=== PATIENT | male | born 1980 | race Hispanic/Latino ===

== ENCOUNTER 2021-03-17 14:38 | Inpatient (IN) | payer BC ==
[~2021-03-17 14:38] MED LIST: Iopamidol-370 76% 500 ML 1 ML ONE
[2021-03-17] MEDS ORDERED: Acetaminophen/Codeine 30-300mg Tablet ONE (16:11)
[2021-03-17] MEDS ORDERED: Ketorolac Tromethamine 30 MG/ML VIAL ONE ×2 (16:11→19:05)
[2021-03-17 16:41] LABS: #Lymphocytes 0.3 thou/uL (1.20-3.40); #Monocytes 0.4 thou/uL (0.11-0.59); #Neutrophils 6.4 thou/uL (1.40-6.50); %Basophils 0.7 % (0.0-1.0); %Eosinophils 0.1 % (0.0-10.0); %Lymphocytes 4.6 % (21.0-51.0); %Neutrophils 88.7 % (42.0-75.0); Hemoglobin 15.1 g/dL (14.0-18.0); Mean Corpuscular HGB CONC 34.8 g/dL (32.0-36.0); Mean Corpuscular Volume 92.1 fL (78.0-98.0); Platelet Count 189 thou/uL (130-400); RBC Distribution Width 11.4 % (11.5-14.5); Red Blood Cell (RBC) Count 4.73 mill/uL (4.70-6.10); White Blood Cell (WBC) Count 7.3 thou/uL (4.8-10.8)
[2021-03-17 17:09] LABS: ALT (SGPT) 33 U/L (8-55); AST (SGOT) 32 U/L (5-34); Albumin 3.4 g/dL (3.5-5.0); Alkaline Phosphatase 51 U/L (40-110); Anion Gap 13 mmol/L (10-20); BUN (Urea Nitrogen) 16 mg/dL (8.9-20.6); Bilirubin, Total 0.8 mg/dL (0.2-1.2); Calc. Creatinine Clearance 0 mL/min (70-130); Calcium 8.7 mg/dL (7.8-10.44); Carbon Dioxide 23 mmol/L (22-29); Chloride 103 mmol/L (98-107); Glucose 122 mg/dL (70-105); Potassium 4.5 mmol/L (3.5-5.1); Protein, Total 7.4 g/dL (6.0-8.3); Sodium 134 mmol/L (136-145)
[2021-03-17] MEDS ORDERED: Dexamethasone 10 MG/ML VIAL ONE (19:05)
[2021-03-17] MEDS ORDERED: Ondansetron PF 4 MG/2 ML Vial IVP PRN (21:45)
[2021-03-17] MEDS ORDERED: Acetaminophen 325 MG TAB PO PRN (21:45)
[2021-03-17] MEDS ORDERED: Ondansetron ODT 4 MG TAB SL PRN (21:45)
[2021-03-17] MEDS ORDERED: Enoxaparin Sodium 40 MG/0.4 ML SYRINGE SC SCH (23:30)
[2021-03-17] MEDS ORDERED: guaiFENesin ER 600 MG TAB PO SCH (23:45)
[2021-03-17] MEDS: Benzonatate 100 MG CAP PO PRN (23:59)
[2021-03-18 06:19] LABS: #Lymphocytes 0.7 thou/uL (1.20-3.40); #Monocytes 0.8 thou/uL (0.11-0.59); %Basophils 0.2 % (0.0-1.0); %Eosinophils 0.1 % (0.0-10.0); %Lymphocytes 6.6 % (21.0-51.0); %Monocytes 7.6 % (0.0-10.0); %Neutrophils 85.5 % (42.0-75.0); Hemoglobin 14.6 g/dL (14.0-18.0); Mean Corpuscular Hemoglobin 31.7 pg (27.0-31.0); Mean Corpuscular Volume 93.2 fL (78.0-98.0); Platelet Count 216 thou/uL (130-400); RBC Distribution Width 11.5 % (11.5-14.5); White Blood Cell (WBC) Count 10.5 thou/uL (4.8-10.8)
[2021-03-18 06:50] LABS: Anion Gap 14 mmol/L (10-20); BUN (Urea Nitrogen) 17 mg/dL (8.9-20.6); Calc. Creatinine Clearance 117 mL/min (70-130); Calcium 8.9 mg/dL (7.8-10.44); Carbon Dioxide 23 mmol/L (22-29); Chloride 103 mmol/L (98-107); Glucose 128 mg/dL (70-105); Potassium 4.5 mmol/L (3.5-5.1); Sodium 135 mmol/L (136-145)
[2021-03-18] MEDS: Cholecalciferol (Vitamin D3) 400 UNITS TAB PO SCH (08:49)
[2021-03-18] MEDS: Enoxaparin Sodium 40 MG/0.4 ML SYRINGE SC SCH ×2 (08:49→20:22)
[2021-03-18] MEDS: Ascorbic Acid 500 mg Chewable Tablet PO SCH (08:50)
[2021-03-18] MEDS: guaiFENesin ER 600 MG TAB PO SCH ×2 (08:50→20:23)
[2021-03-18] MEDS: Zinc Sulfate 220 MG CAP PO SCH (08:50)
[2021-03-18] MEDS: Benzonatate 100 MG CAP PO PRN ×4 (08:50→23:36)
[2021-03-18] MEDS ORDERED: Dexamethasone 4 mg/ml Vial SLOW IVP SCH (09:00)
[2021-03-18] MEDS ORDERED: REMDESIVIR 200 MG in Sodium Chloride 0.9% 250 ML 210 ML IV SCH (09:00)
[2021-03-18] MEDS: guaiFENesin/Codeine 200 mg/20 mg 10 ml Cup PO PRN ×2 (11:24→20:24)
[2021-03-18] MEDS: Acetaminophen 325 MG TAB PO PRN ×2 (17:35→23:36)
[2021-03-19 05:43] LABS: #Lymphocytes 1.3 thou/uL (1.20-3.40); #Monocytes 0.6 thou/uL (0.11-0.59); #Neutrophils 8.7 thou/uL (1.40-6.50); %Basophils 0.5 % (0.0-1.0); %Eosinophils 0.3 % (0.0-10.0); %Lymphocytes 11.8 % (21.0-51.0); %Neutrophils 81.5 % (42.0-75.0); Hemoglobin 14.9 g/dL (14.0-18.0); Mean Corpuscular HGB CONC 34.1 g/dL (32.0-36.0); Mean Corpuscular Hemoglobin 31.6 pg (27.0-31.0); Mean Corpuscular Volume 92.8 fL (78.0-98.0); Mean Platelet Volume 7.6 fL (7.4-10.4); Platelet Count 249 thou/uL (130-400); RBC Distribution Width 11.5 % (11.5-14.5); Red Blood Cell (RBC) Count 4.71 mill/uL (4.70-6.10); White Blood Cell (WBC) Count 10.7 thou/uL (4.8-10.8)
[2021-03-19 06:09] LABS: ALT (SGPT) 28 U/L (8-55); AST (SGOT) 33 U/L (5-34); Albumin 3.2 g/dL (3.5-5.0); Alkaline Phosphatase 51 U/L (40-110); Anion Gap 11 mmol/L (10-20); BUN (Urea Nitrogen) 18 mg/dL (8.9-20.6); Bilirubin, Total 0.8 mg/dL (0.2-1.2); Calc. Creatinine Clearance 123 mL/min (70-130); Calcium 8.9 mg/dL (7.8-10.44); Carbon Dioxide 27 mmol/L (22-29); Chloride 103 mmol/L (98-107); Globulin 3.8 g/dL (2.4-3.5); Glucose 103 mg/dL (70-105); Potassium 4.3 mmol/L (3.5-5.1); Sodium 137 mmol/L (136-145)
[2021-03-19] MEDS: Acetaminophen 325 MG TAB PO PRN ×3 (07:06→20:42)
[2021-03-19] MEDS: guaiFENesin/Codeine 200 mg/20 mg 10 ml Cup PO PRN ×3 (07:06→20:34)
[2021-03-19] MEDS: Enoxaparin Sodium 40 MG/0.4 ML SYRINGE SC SCH ×2 (08:41→20:30)
[2021-03-19] MEDS: Colchicine 0.6 MG TAB PO SCH ×2 (08:42→20:29)
[2021-03-19] MEDS: Cholecalciferol (Vitamin D3) 400 UNITS TAB PO SCH (08:42)
[2021-03-19] MEDS: Zinc Sulfate 220 MG CAP PO SCH (08:42)
[2021-03-19] MEDS: ALPRAZolam 0.5 MG TAB PO PRN ×2 (08:42→20:38)
[2021-03-19] MEDS: Dexamethasone 4 mg/ml Vial SLOW IVP SCH ×2 (08:42→20:29)
[2021-03-19] MEDS: Ascorbic Acid 500 mg Chewable Tablet PO SCH (08:42)
[2021-03-19] MEDS: Benzonatate 100 MG CAP PO PRN (08:43)
[2021-03-19] MEDS: guaiFENesin ER 600 MG TAB PO SCH ×2 (08:43→20:30)
[2021-03-19] MEDS: REMDESIVIR 100 MG in Sodium Chloride 0.9% 250 ML 230 ML IV SCH (10:23)
[2021-03-20] MEDS: Benzonatate 100 MG CAP PO PRN ×4 (04:38→20:22)
[2021-03-20] MEDS: ALPRAZolam 0.5 MG TAB PO PRN ×2 (04:38→16:28)
[2021-03-20 06:31] LABS: ALT (SGPT) 25 U/L (8-55); AST (SGOT) 24 U/L (5-34); Albumin 3.1 g/dL (3.5-5.0); Alkaline Phosphatase 53 U/L (40-110); Anion Gap 12 mmol/L (10-20); BUN (Urea Nitrogen) 17 mg/dL (8.9-20.6); Bilirubin, Total 0.8 mg/dL (0.2-1.2); CRP (Inflammatory) 9.69 mg/dL (= or < 0.5); Calc. Creatinine Clearance 152 mL/min (70-130); Calcium 8.8 mg/dL (7.8-10.44); Carbon Dioxide 23 mmol/L (22-29); Chloride 104 mmol/L (98-107); Globulin 3.7 g/dL (2.4-3.5); Glucose 127 mg/dL (70-105); Potassium 4.4 mmol/L (3.5-5.1); Protein, Total 6.8 g/dL (6.0-8.3); Sodium 135 mmol/L (136-145)
[2021-03-20 06:47] LABS: Band 5 % (5-11); Hemoglobin 15.1 g/dL (14.0-18.0); Lymphocytes 8 % (21-51); MDiff Complete? YES; Mean Corpuscular HGB CONC 32.9 g/dL (32.0-36.0); Mean Corpuscular Hemoglobin 30.7 pg (27.0-31.0); Mean Corpuscular Volume 93.4 fL (78.0-98.0); Mean Platelet Volume 7.4 fL (7.4-10.4); Metamyelocyte 2 % (0-0); Monocytes 4 % (0-10); Myelocyte 3 % (0-0); Neutrophil 76 % (42-75); Platelet Count 297 thou/uL (130-400); Platelet Morphology Comment Appears Adequate; RBC Distribution Width 11.6 % (11.5-14.5); RBC Morphology Normal; Reactive Lymphocytes 2 % (0-10); Red Blood Cell (RBC) Count 4.93 mill/uL (4.70-6.10); White Blood Cell (WBC) Count 8.4 thou/uL (4.8-10.8)
[2021-03-20] MEDS: guaiFENesin ER 600 MG TAB PO SCH ×2 (08:31→20:15)
[2021-03-20] MEDS: Ascorbic Acid 500 mg Chewable Tablet PO SCH (08:31)
[2021-03-20] MEDS: Acetaminophen 325 MG TAB PO PRN (08:31)
[2021-03-20] MEDS: guaiFENesin/Codeine 200 mg/20 mg 10 ml Cup PO PRN ×2 (08:31→16:28)
[2021-03-20] MEDS: Dexamethasone 4 mg/ml Vial SLOW IVP SCH ×2 (08:31→20:08)
[2021-03-20] MEDS: Enoxaparin Sodium 40 MG/0.4 ML SYRINGE SC SCH ×2 (08:31→20:13)
[2021-03-20] MEDS: Zinc Sulfate 220 MG CAP PO SCH (08:32)
[2021-03-20] MEDS: Colchicine 0.6 MG TAB PO SCH ×2 (08:32→20:13)
[2021-03-20] MEDS: Cholecalciferol (Vitamin D3) 400 UNITS TAB PO SCH (08:32)
[2021-03-20] MEDS: REMDESIVIR 100 MG in Sodium Chloride 0.9% 250 ML 230 ML IV SCH (09:22)
[2021-03-20] MEDS ORDERED: Morphine 2 MG/ML VIAL SLOW IVP SCH (19:49)
[2021-03-21] MEDS: guaiFENesin/Codeine 200 mg/20 mg 10 ml Cup PO PRN ×3 (00:43→20:14)
[2021-03-21] MEDS: ALPRAZolam 0.5 MG TAB PO PRN ×2 (00:49→20:39)
[2021-03-21 04:28] LABS: ALT (SGPT) 31 U/L (8-55); AST (SGOT) 23 U/L (5-34); Alkaline Phosphatase 54 U/L (40-110); Anion Gap 11 mmol/L (10-20); BUN (Urea Nitrogen) 16 mg/dL (8.9-20.6); Bilirubin, Total 0.9 mg/dL (0.2-1.2); CRP (Inflammatory) 4.32 mg/dL (= or < 0.5); Calc. Creatinine Clearance 125 mL/min (70-130); Calcium 8.9 mg/dL (7.8-10.44); Carbon Dioxide 27 mmol/L (22-29); Chloride 102 mmol/L (98-107); Globulin 3.9 g/dL (2.4-3.5); Glucose 122 mg/dL (70-105); Potassium 4.6 mmol/L (3.5-5.1); Protein, Total 6.9 g/dL (6.0-8.3); Sodium 135 mmol/L (136-145)
[2021-03-21 04:34] LABS: Band 8 % (5-11); Hemoglobin 15.3 g/dL (14.0-18.0); Lymphocytes 7 % (21-51); MDiff Complete? YES; Mean Corpuscular HGB CONC 34.4 g/dL (32.0-36.0); Mean Corpuscular Hemoglobin 32.1 pg (27.0-31.0); Mean Corpuscular Volume 93.3 fL (78.0-98.0); Mean Platelet Volume 7.5 fL (7.4-10.4); Monocytes 5 % (0-10); Neutrophil 80 % (42-75); Platelet Count 341 thou/uL (130-400); Platelet Morphology Comment Appears Adequate; RBC Distribution Width 11.5 % (11.5-14.5); RBC Morphology Normal; Red Blood Cell (RBC) Count 4.77 mill/uL (4.70-6.10); White Blood Cell (WBC) Count 16.2 thou/uL (4.8-10.8)
[2021-03-21] MEDS: REMDESIVIR 100 MG in Sodium Chloride 0.9% 250 ML 230 ML IV SCH (08:06)
[2021-03-21] MEDS: Dexamethasone 4 mg/ml Vial SLOW IVP SCH ×2 (08:06→20:13)
[2021-03-21] MEDS: guaiFENesin ER 600 MG TAB PO SCH ×2 (08:07→20:14)
[2021-03-21] MEDS: Cholecalciferol (Vitamin D3) 400 UNITS TAB PO SCH (08:07)
[2021-03-21] MEDS: Colchicine 0.6 MG TAB PO SCH (08:07)
[2021-03-21] MEDS: Zinc Sulfate 220 MG CAP PO SCH (08:07)
[2021-03-21] MEDS: Ascorbic Acid 500 mg Chewable Tablet PO SCH (08:07)
[2021-03-21] MEDS: Enoxaparin Sodium 40 MG/0.4 ML SYRINGE SC SCH ×2 (08:08→20:14)
[2021-03-21] MEDS: Benzonatate 100 MG CAP PO PRN (12:39)
[2021-03-21] MEDS ORDERED: BARICITINIB 2 MG TAB PO SCH (16:30)
[2021-03-21] MEDS: Ipratropium Bromide 0.06% Nasal Inhaler 15ml EA NARE SCH (20:15)
[2021-03-22 04:10] LABS: ALT (SGPT) 49 U/L (8-55); AST (SGOT) 28 U/L (5-34); Albumin 3.3 g/dL (3.5-5.0); Alkaline Phosphatase 66 U/L (40-110); Anion Gap 11 mmol/L (10-20); BUN (Urea Nitrogen) 19 mg/dL (8.9-20.6); Bilirubin, Total 0.9 mg/dL (0.2-1.2); Calc. Creatinine Clearance 120 mL/min (70-130); Calcium 9.2 mg/dL (7.8-10.44); Carbon Dioxide 28 mmol/L (22-29); Chloride 103 mmol/L (98-107); Globulin 4.2 g/dL (2.4-3.5); Glucose 119 mg/dL (70-105); Potassium 4.6 mmol/L (3.5-5.1); Protein, Total 7.5 g/dL (6.0-8.3); Sodium 137 mmol/L (136-145)
[2021-03-22 04:53] LABS: Band 14 % (5-11); Hemoglobin 16.2 g/dL (14.0-18.0); Lymphocytes 7 % (21-51); MDiff Complete? YES; Mean Corpuscular HGB CONC 34.2 g/dL (32.0-36.0); Mean Corpuscular Hemoglobin 31.8 pg (27.0-31.0); Mean Corpuscular Volume 92.9 fL (78.0-98.0); Mean Platelet Volume 7.4 fL (7.4-10.4); Metamyelocyte 1 % (0-0); Monocytes 8 % (0-10); Myelocyte 3 % (0-0); Neutrophil 64 % (42-75); Platelet Count 417 thou/uL (130-400); Platelet Morphology Comment Appears Increased; RBC Distribution Width 11.4 % (11.5-14.5); RBC Morphology Normal; Reactive Lymphocytes 3 % (0-10); White Blood Cell (WBC) Count 14.2 thou/uL (4.8-10.8)
[2021-03-22] MEDS: guaiFENesin/Codeine 200 mg/20 mg 10 ml Cup PO PRN ×2 (06:06→20:44)
[2021-03-22] MEDS: ALPRAZolam 0.5 MG TAB PO PRN ×2 (06:32→20:28)
[2021-03-22] MEDS ORDERED: Loperamide HCl 2 MG CAP PO PRN (07:47)
[2021-03-22] MEDS ORDERED: Senokot S 8.6-50 MG TAB PO PRN (07:47)
[2021-03-22] MEDS ORDERED: Sodium Chloride 0.65% Nasal 44 ML BOT EA NARE PRN (07:47)
[2021-03-22] MEDS ORDERED: GUAIFENESIN SF SOLN 200 MG/10 ML UDCUP PO PRN (07:47)
[2021-03-22] MEDS ORDERED: HYDROcodone/Acetaminophen 5/325 mg Tablet PO PRN (07:47)
[2021-03-22] MEDS ORDERED: Hydrocerin (Eucerin) Cream 120 gm Jar TOP PRN (07:47)
[2021-03-22] MEDS ORDERED: hydrALAZINE 20 MG/ML VIAL SLOW IVP PRN (07:47)
[2021-03-22] MEDS ORDERED: Bisacodyl 5 MG TAB PO PRN (07:47)
[2021-03-22] MEDS ORDERED: Artificial Tear Sol 15 ML BOT EA EYE PRN (07:47)
[2021-03-22] MEDS ORDERED: Ondansetron PF 4 MG/2 ML Vial IVP PRN (07:47)
[2021-03-22] MEDS ORDERED: Ondansetron ODT 4 MG TAB PO PRN (07:47)
[2021-03-22] MEDS ORDERED: Melatonin 3 MG TAB PO PRN (07:48)
[2021-03-22] MEDS: Zinc Sulfate 220 MG CAP PO SCH (08:44)
[2021-03-22] MEDS: BARICITINIB 2 MG TAB PO SCH (08:44)
[2021-03-22] MEDS: Cholecalciferol (Vitamin D3) 400 UNITS TAB PO SCH (08:44)
[2021-03-22] MEDS: Ascorbic Acid 500 mg Chewable Tablet PO SCH (08:44)
[2021-03-22] MEDS: Dexamethasone 4 mg/ml Vial SLOW IVP SCH ×2 (08:44→19:56)
[2021-03-22] MEDS: Loratadine 10 MG TAB PO SCH (08:44)
[2021-03-22] MEDS: Enoxaparin Sodium 40 MG/0.4 ML SYRINGE SC SCH ×2 (08:45→19:56)
[2021-03-22] MEDS: REMDESIVIR 100 MG in Sodium Chloride 0.9% 250 ML 230 ML IV SCH (08:45)
[2021-03-22] MEDS: Fluticasone Propionate Nasal Spray 16 gm Bottle NASAL SCH (10:38)
[2021-03-22] MEDS: Ipratropium Bromide 0.06% Nasal Inhaler 15ml EA NARE SCH ×2 (10:38→19:57)
[2021-03-22] MEDS: guaiFENesin ER 600 MG TAB PO SCH ×2 (13:05→19:55)
[2021-03-22] MEDS: Benzonatate 100 MG CAP PO PRN (20:28)
[2021-03-23 04:28] LABS: ALT (SGPT) 55 U/L (8-55); AST (SGOT) 27 U/L (5-34); Albumin 3.2 g/dL (3.5-5.0); Alkaline Phosphatase 66 U/L (40-110); Anion Gap 11 mmol/L (10-20); BUN (Urea Nitrogen) 20 mg/dL (8.9-20.6); Calc. Creatinine Clearance 122 mL/min (70-130); Calcium 8.8 mg/dL (7.8-10.44); Carbon Dioxide 26 mmol/L (22-29); Chloride 102 mmol/L (98-107); Globulin 3.8 g/dL (2.4-3.5); Glucose 110 mg/dL (70-105); Potassium 4.9 mmol/L (3.5-5.1); Sodium 134 mmol/L (136-145)
[2021-03-23 04:35] LABS: Band 2 % (5-11); Hemoglobin 15.3 g/dL (14.0-18.0); Lymphocytes 7 % (21-51); MDiff Complete? YES; Mean Corpuscular Hemoglobin 31.5 pg (27.0-31.0); Mean Corpuscular Volume 92.7 fL (78.0-98.0); Mean Platelet Volume 7.1 fL (7.4-10.4); Monocytes 5 % (0-10); Neutrophil 86 % (42-75); Platelet Count 411 thou/uL (130-400); Platelet Morphology Comment Appears Increased; RBC Distribution Width 11.5 % (11.5-14.5); RBC Morphology Normal; Red Blood Cell (RBC) Count 4.85 mill/uL (4.70-6.10); White Blood Cell (WBC) Count 19.3 thou/uL (4.8-10.8)
[2021-03-23] MEDS: guaiFENesin/Codeine 200 mg/20 mg 10 ml Cup PO PRN ×2 (06:52→20:55)
[2021-03-23] MEDS: guaiFENesin ER 600 MG TAB PO SCH ×2 (09:09→20:34)
[2021-03-23] MEDS: Dexamethasone 4 mg/ml Vial SLOW IVP SCH ×2 (09:09→20:34)
[2021-03-23] MEDS: Cholecalciferol (Vitamin D3) 400 UNITS TAB PO SCH (09:09)
[2021-03-23] MEDS: Loratadine 10 MG TAB PO SCH (09:09)
[2021-03-23] MEDS: Zinc Sulfate 220 MG CAP PO SCH (09:09)
[2021-03-23] MEDS: BARICITINIB 2 MG TAB PO SCH (09:11)
[2021-03-23] MEDS: Ipratropium Bromide 0.06% Nasal Inhaler 15ml EA NARE SCH ×2 (09:12→20:36)
[2021-03-23] MEDS: Enoxaparin Sodium 40 MG/0.4 ML SYRINGE SC SCH ×2 (09:12→20:33)
[2021-03-23] MEDS: Fluticasone Propionate Nasal Spray 16 gm Bottle NASAL SCH (09:12)
[2021-03-23] MEDS: Ascorbic Acid 500 mg Chewable Tablet PO SCH (10:53)
[2021-03-23] MEDS: Acetaminophen 325 MG TAB PO PRN (17:10)
[2021-03-23] MEDS: Calcium Carbonate 500 MG ChewTAB PO PRN ×2 (19:06→22:45)
[2021-03-23] MEDS: Benzonatate 100 MG CAP PO PRN (20:34)
[2021-03-23] MEDS: ALPRAZolam 0.5 MG TAB PO PRN (20:34)
[2021-03-24] MEDS: guaiFENesin/Codeine 200 mg/20 mg 10 ml Cup PO PRN ×2 (03:57→20:44)
[2021-03-24] MEDS: Calcium Carbonate 500 MG ChewTAB PO PRN ×2 (05:17→10:22)
[2021-03-24] MEDS: Enoxaparin Sodium 40 MG/0.4 ML SYRINGE SC SCH ×2 (09:16→20:44)
[2021-03-24] MEDS: Dexamethasone 4 mg/ml Vial SLOW IVP SCH ×2 (09:16→20:44)
[2021-03-24] MEDS: Fluticasone Propionate Nasal Spray 16 gm Bottle NASAL SCH (09:17)
[2021-03-24] MEDS: Ascorbic Acid 500 mg Chewable Tablet PO SCH (09:17)
[2021-03-24] MEDS: Zinc Sulfate 220 MG CAP PO SCH (09:17)
[2021-03-24] MEDS: BARICITINIB 2 MG TAB PO SCH (09:17)
[2021-03-24] MEDS: Cholecalciferol (Vitamin D3) 400 UNITS TAB PO SCH (09:17)
[2021-03-24] MEDS: guaiFENesin ER 600 MG TAB PO SCH ×2 (09:17→20:44)
[2021-03-24] MEDS: Loratadine 10 MG TAB PO SCH (09:17)
[2021-03-24] MEDS: Ipratropium Bromide 0.06% Nasal Inhaler 15ml EA NARE SCH ×2 (09:18→20:46)
[2021-03-24] MEDS: Benzonatate 100 MG CAP PO PRN ×2 (10:22→20:44)
[2021-03-24] MEDS ORDERED: Famotidine 20 MG TAB PO SCH (11:45)
[2021-03-24] MEDS: ALPRAZolam 0.5 MG TAB PO PRN (20:44)
[2021-03-24] MEDS: Cepastat Lozenges 1 LOZ PO PRN (21:40)
[2021-03-25] MEDS: Famotidine 20 MG TAB PO SCH (06:58)
[2021-03-25] MEDS: Calcium Carbonate 500 MG ChewTAB PO PRN (06:58)
[2021-03-25] MEDS: Zinc Sulfate 220 MG CAP PO SCH (10:00)
[2021-03-25] MEDS: Ascorbic Acid 500 mg Chewable Tablet PO SCH (10:00)
[2021-03-25] MEDS: Dexamethasone 4 mg/ml Vial SLOW IVP SCH ×2 (10:00→20:38)
[2021-03-25] MEDS: Enoxaparin Sodium 40 MG/0.4 ML SYRINGE SC SCH ×2 (10:00→20:38)
[2021-03-25] MEDS: Loratadine 10 MG TAB PO SCH (10:00)
[2021-03-25] MEDS: BARICITINIB 2 MG TAB PO SCH (10:00)
[2021-03-25] MEDS: Cholecalciferol (Vitamin D3) 400 UNITS TAB PO SCH (10:00)
[2021-03-25] MEDS: guaiFENesin ER 600 MG TAB PO SCH ×2 (10:00→20:36)
[2021-03-25] MEDS: Ipratropium Bromide 0.06% Nasal Inhaler 15ml EA NARE SCH ×2 (10:01→20:39)
[2021-03-25] MEDS: Fluticasone Propionate Nasal Spray 16 gm Bottle NASAL SCH (10:01)
[2021-03-25] MEDS: Benzonatate 100 MG CAP PO PRN ×2 (10:04→18:02)
[2021-03-25] MEDS: guaiFENesin/Codeine 200 mg/20 mg 10 ml Cup PO PRN (12:34)
[2021-03-25] MEDS: guaiFENesin/Codeine 200 mg/20 mg 10 ml Cup PO SCH (18:02)
[2021-03-25] MEDS: ALPRAZolam 0.5 MG TAB PO PRN (20:36)
[2021-03-25] MEDS: Cepastat Lozenges 1 LOZ PO PRN (20:37)
[2021-03-26] MEDS: Benzonatate 100 MG CAP PO PRN ×5 (00:37→20:48)
[2021-03-26] MEDS: Cepastat Lozenges 1 LOZ PO PRN ×3 (00:37→16:03)
[2021-03-26] MEDS: guaiFENesin/Codeine 200 mg/20 mg 10 ml Cup PO SCH ×4 (00:37→23:11)
[2021-03-26 04:41] LABS: ALT (SGPT) 42 U/L (8-55); AST (SGOT) 13 U/L (5-34); Albumin 3.1 g/dL (3.5-5.0); Alkaline Phosphatase 66 U/L (40-110); Bilirubin, Direct 0.3 mg/dL (0.1-0.3); Bilirubin, Total 0.7 mg/dL (0.2-1.2); Protein, Total 6.9 g/dL (6.0-8.3)
[2021-03-26] MEDS: Famotidine 20 MG TAB PO SCH (06:20)
[2021-03-26] MEDS: Cholecalciferol (Vitamin D3) 400 UNITS TAB PO SCH (08:50)
[2021-03-26] MEDS: Loratadine 10 MG TAB PO SCH (08:50)
[2021-03-26] MEDS: Zinc Sulfate 220 MG CAP PO SCH (08:50)
[2021-03-26] MEDS: Dexamethasone 4 mg/ml Vial SLOW IVP SCH ×2 (08:50→20:47)
[2021-03-26] MEDS: guaiFENesin ER 600 MG TAB PO SCH ×2 (08:50→20:49)
[2021-03-26] MEDS: Enoxaparin Sodium 40 MG/0.4 ML SYRINGE SC SCH ×2 (08:50→20:49)
[2021-03-26] MEDS: Fluticasone Propionate Nasal Spray 16 gm Bottle NASAL SCH (08:51)
[2021-03-26] MEDS: Ascorbic Acid 500 mg Chewable Tablet PO SCH (08:55)
[2021-03-26] MEDS: Ipratropium Bromide 0.06% Nasal Inhaler 15ml EA NARE SCH ×2 (09:24→20:50)
[2021-03-26] MEDS: BARICITINIB 2 MG TAB PO SCH (09:24)
[2021-03-26] MEDS: ALPRAZolam 0.5 MG TAB PO PRN (20:49)
[2021-03-27 04:32] LABS: Anion Gap 11 mmol/L (10-20); BUN (Urea Nitrogen) 14 mg/dL (8.9-20.6); Calc. Creatinine Clearance 136 mL/min (70-130); Calcium 8.8 mg/dL (7.8-10.44); Carbon Dioxide 26 mmol/L (22-29); Chloride 99 mmol/L (98-107); Glucose 114 mg/dL (70-105); Potassium 4.2 mmol/L (3.5-5.1); Sodium 132 mmol/L (136-145)
[2021-03-27 04:42] LABS: Mean Corpuscular HGB CONC 33.3 g/dL (32.0-36.0); Mean Corpuscular Hemoglobin 30.9 pg (27.0-31.0); Mean Platelet Volume 7.7 fL (7.4-10.4); Platelet Count 489 thou/uL (130-400); RBC Distribution Width 11.8 % (11.5-14.5); Red Blood Cell (RBC) Count 4.86 mill/uL (4.70-6.10); White Blood Cell (WBC) Count 24.1 thou/uL (4.8-10.8)
[2021-03-27] MEDS: Cepastat Lozenges 1 LOZ PO PRN ×4 (05:00→20:45)
[2021-03-27 05:40] LABS: Band 23 % (5-11); Eosinophils 1 % (0-10); Lymphocytes 8 % (21-51); MDiff Complete? YES; Monocytes 2 % (0-10); Neutrophil 66 % (42-75)
[2021-03-27] MEDS: Benzonatate 100 MG CAP PO PRN ×4 (06:12→20:39)
[2021-03-27] MEDS: Cholecalciferol (Vitamin D3) 400 UNITS TAB PO SCH (08:50)
[2021-03-27] MEDS: BARICITINIB 2 MG TAB PO SCH (08:50)
[2021-03-27] MEDS: Enoxaparin Sodium 40 MG/0.4 ML SYRINGE SC SCH ×2 (08:50→20:39)
[2021-03-27] MEDS: guaiFENesin/Codeine 200 mg/20 mg 10 ml Cup PO SCH ×2 (08:50→16:29)
[2021-03-27] MEDS: guaiFENesin ER 600 MG TAB PO SCH ×2 (08:51→20:39)
[2021-03-27] MEDS: Dexamethasone 4 mg/ml Vial SLOW IVP SCH ×2 (08:51→20:39)
[2021-03-27] MEDS: ALPRAZolam 0.5 MG TAB PO PRN ×2 (08:51→20:39)
[2021-03-27] MEDS: Ascorbic Acid 500 mg Chewable Tablet PO SCH (08:51)
[2021-03-27] MEDS: Loratadine 10 MG TAB PO SCH (08:51)
[2021-03-27] MEDS: Zinc Sulfate 220 MG CAP PO SCH (08:51)
[2021-03-27] MEDS: Famotidine 20 MG TAB PO SCH (08:51)
[2021-03-27] MEDS: Fluticasone Propionate Nasal Spray 16 gm Bottle NASAL SCH (08:52)
[2021-03-27] MEDS: Ipratropium Bromide 0.06% Nasal Inhaler 15ml EA NARE SCH ×2 (09:30→20:43)
[2021-03-27] MEDS: Melatonin 3 MG TAB PO SCH (20:39)
[2021-03-28] MEDS: guaiFENesin/Codeine 200 mg/20 mg 10 ml Cup PO SCH ×3 (00:17→15:59)
[2021-03-28] MEDS: Cepastat Lozenges 1 LOZ PO PRN ×2 (05:54→09:42)
[2021-03-28] MEDS: Benzonatate 100 MG CAP PO PRN ×3 (06:34→15:59)
[2021-03-28] MEDS: ALPRAZolam 0.5 MG TAB PO PRN ×2 (06:38→20:47)
[2021-03-28 08:26] VITALS: BMI 26.9
[2021-03-28] MEDS: Loratadine 10 MG TAB PO SCH (09:08)
[2021-03-28] MEDS: BARICITINIB 2 MG TAB PO SCH (09:08)
[2021-03-28] MEDS: Cholecalciferol (Vitamin D3) 400 UNITS TAB PO SCH (09:08)
[2021-03-28] MEDS: guaiFENesin ER 600 MG TAB PO SCH ×2 (09:08→20:47)
[2021-03-28] MEDS: Famotidine 20 MG TAB PO SCH (09:08)
[2021-03-28] MEDS: Zinc Sulfate 220 MG CAP PO SCH (09:09)
[2021-03-28] MEDS: Ascorbic Acid 500 mg Chewable Tablet PO SCH (09:09)
[2021-03-28] MEDS: Dexamethasone 4 mg/ml Vial SLOW IVP SCH ×2 (09:09→20:47)
[2021-03-28] MEDS: Enoxaparin Sodium 40 MG/0.4 ML SYRINGE SC SCH ×2 (09:09→20:46)
[2021-03-28] MEDS: Ipratropium Bromide 0.06% Nasal Inhaler 15ml EA NARE SCH ×2 (09:11→20:47)
[2021-03-28] MEDS: Fluticasone Propionate Nasal Spray 16 gm Bottle NASAL SCH (09:11)
[2021-03-28] MEDS: Melatonin 3 MG TAB PO SCH (20:47)
[2021-03-29] MEDS: guaiFENesin/Codeine 200 mg/20 mg 10 ml Cup PO SCH ×3 (00:05→16:48)
[2021-03-29] MEDS: ALPRAZolam 0.5 MG TAB PO PRN ×2 (05:12→21:08)
[2021-03-29] MEDS: Benzonatate 100 MG CAP PO PRN ×2 (05:12→21:08)
[2021-03-29 07:43] LABS: ALT (SGPT) 45 U/L (8-55); AST (SGOT) 15 U/L (5-34); Albumin 3.1 g/dL (3.5-5.0); Alkaline Phosphatase 72 U/L (40-110); Bilirubin, Direct 0.3 mg/dL (0.1-0.3); Bilirubin, Total 0.8 mg/dL (0.2-1.2); Protein, Total 6.5 g/dL (6.0-8.3)
[2021-03-29] MEDS: Dexamethasone 4 mg/ml Vial SLOW IVP SCH ×2 (09:13→19:38)
[2021-03-29] MEDS: Cholecalciferol (Vitamin D3) 400 UNITS TAB PO SCH (09:13)
[2021-03-29] MEDS: Ascorbic Acid 500 mg Chewable Tablet PO SCH (09:13)
[2021-03-29] MEDS: Famotidine 20 MG TAB PO SCH (09:13)
[2021-03-29] MEDS: Zinc Sulfate 220 MG CAP PO SCH (09:13)
[2021-03-29] MEDS: Enoxaparin Sodium 40 MG/0.4 ML SYRINGE SC SCH ×2 (09:13→19:36)
[2021-03-29] MEDS: Loratadine 10 MG TAB PO SCH (09:13)
[2021-03-29] MEDS: guaiFENesin ER 600 MG TAB PO SCH ×2 (09:13→19:37)
[2021-03-29] MEDS: BARICITINIB 2 MG TAB PO SCH (09:18)
[2021-03-29] MEDS: Fluticasone Propionate Nasal Spray 16 gm Bottle NASAL SCH (09:33)
[2021-03-29] MEDS: Ipratropium Bromide 0.06% Nasal Inhaler 15ml EA NARE SCH ×2 (09:33→21:00)
[2021-03-29] MEDS: Melatonin 3 MG TAB PO SCH (19:38)
[2021-03-30] MEDS: guaiFENesin/Codeine 200 mg/20 mg 10 ml Cup PO SCH ×3 (00:32→16:52)
[2021-03-30 07:05] LABS: #Eosinphils 0.1 thou/uL (0.0-0.7); #Lymphocytes 0.9 thou/uL (1.20-3.40); #Monocytes 0.9 thou/uL (0.11-0.59); #Neutrophils 12.1 thou/uL (1.40-6.50); %Basophils 0.1 % (0.0-1.0); %Eosinophils 0.4 % (0.0-10.0); %Lymphocytes 6.3 % (21.0-51.0); %Monocytes 6.7 % (0.0-10.0); %Neutrophils 86.6 % (42.0-75.0); Hemoglobin 14.7 g/dL (14.0-18.0); Mean Corpuscular HGB CONC 34.6 g/dL (32.0-36.0); Mean Corpuscular Hemoglobin 32.5 pg (27.0-31.0); Mean Platelet Volume 7.8 fL (7.4-10.4); Platelet Count 440 thou/uL (130-400); RBC Distribution Width 11.9 % (11.5-14.5); Red Blood Cell (RBC) Count 4.51 mill/uL (4.70-6.10); White Blood Cell (WBC) Count 13.9 thou/uL (4.8-10.8)
[2021-03-30 07:15] LABS: Anion Gap 10 mmol/L (10-20); BUN (Urea Nitrogen) 15 mg/dL (8.9-20.6); Calc. Creatinine Clearance 115 mL/min (70-130); Calcium 8.7 mg/dL (7.8-10.44); Carbon Dioxide 30 mmol/L (22-29); Chloride 102 mmol/L (98-107); Glucose 94 mg/dL (70-105); Potassium 4.4 mmol/L (3.5-5.1); Sodium 138 mmol/L (136-145)
[2021-03-30] MEDS: BARICITINIB 2 MG TAB PO SCH (08:22)
[2021-03-30] MEDS: Zinc Sulfate 220 MG CAP PO SCH (08:22)
[2021-03-30] MEDS: Enoxaparin Sodium 40 MG/0.4 ML SYRINGE SC SCH ×2 (08:23→20:11)
[2021-03-30] MEDS: Cholecalciferol (Vitamin D3) 400 UNITS TAB PO SCH (08:23)
[2021-03-30] MEDS: Loratadine 10 MG TAB PO SCH (08:23)
[2021-03-30] MEDS: Ascorbic Acid 500 mg Chewable Tablet PO SCH (08:23)
[2021-03-30] MEDS: guaiFENesin ER 600 MG TAB PO SCH ×2 (08:23→20:11)
[2021-03-30] MEDS: Dexamethasone 4 mg/ml Vial SLOW IVP SCH ×2 (08:23→20:11)
[2021-03-30] MEDS: Famotidine 20 MG TAB PO SCH (08:23)
[2021-03-30] MEDS: Fluticasone Propionate Nasal Spray 16 gm Bottle NASAL SCH (09:34)
[2021-03-30] MEDS: Ipratropium Bromide 0.06% Nasal Inhaler 15ml EA NARE SCH ×2 (09:34→20:12)
[2021-03-30] MEDS: ALPRAZolam 0.5 MG TAB PO PRN ×2 (09:53→20:11)
[2021-03-30] MEDS: Benzonatate 100 MG CAP PO PRN (20:11)
[2021-03-30] MEDS: Melatonin 3 MG TAB PO SCH (20:12)
[2021-03-31] MEDS: guaiFENesin/Codeine 200 mg/20 mg 10 ml Cup PO SCH ×3 (01:19→17:01)
[2021-03-31] MEDS: Benzonatate 100 MG CAP PO PRN ×2 (08:24→20:03)
[2021-03-31] MEDS: Dexamethasone 4 mg/ml Vial SLOW IVP SCH ×2 (08:48→19:56)
[2021-03-31] MEDS: Famotidine 20 MG TAB PO SCH (08:48)
[2021-03-31] MEDS: Zinc Sulfate 220 MG CAP PO SCH (08:49)
[2021-03-31] MEDS: Cholecalciferol (Vitamin D3) 400 UNITS TAB PO SCH (08:49)
[2021-03-31] MEDS: guaiFENesin ER 600 MG TAB PO SCH ×2 (08:49→19:56)
[2021-03-31] MEDS: Loratadine 10 MG TAB PO SCH (08:49)
[2021-03-31] MEDS: BARICITINIB 2 MG TAB PO SCH (08:50)
[2021-03-31] MEDS: Ascorbic Acid 500 mg Chewable Tablet PO SCH (08:50)
[2021-03-31] MEDS: Enoxaparin Sodium 40 MG/0.4 ML SYRINGE SC SCH ×2 (08:50→19:57)
[2021-03-31] MEDS: Ipratropium Bromide 0.06% Nasal Inhaler 15ml EA NARE SCH ×2 (08:51→19:57)
[2021-03-31] MEDS: Fluticasone Propionate Nasal Spray 16 gm Bottle NASAL SCH (08:51)
[2021-03-31] MEDS: ALPRAZolam 0.5 MG TAB PO PRN ×2 (11:16→20:03)
[2021-03-31] MEDS ORDERED: ALPRAZolam 0.5 MG TAB PO SCH (14:00)
[2021-03-31] MEDS: Melatonin 3 MG TAB PO SCH (19:56)
[2021-04-01] MEDS: guaiFENesin/Codeine 200 mg/20 mg 10 ml Cup PO SCH ×3 (01:06→16:52)
[2021-04-01 06:26] LABS: ALT (SGPT) 35 U/L (8-55); AST (SGOT) 9 U/L (5-34); Albumin 3.3 g/dL (3.5-5.0); Alkaline Phosphatase 70 U/L (40-110); Bilirubin, Direct 0.3 mg/dL (0.1-0.3); Bilirubin, Total 0.7 mg/dL (0.2-1.2); Protein, Total 6.6 g/dL (6.0-8.3)
[2021-04-01] MEDS: Ascorbic Acid 500 mg Chewable Tablet PO SCH (08:56)
[2021-04-01] MEDS: guaiFENesin ER 600 MG TAB PO SCH ×2 (08:56→20:42)
[2021-04-01] MEDS: Famotidine 20 MG TAB PO SCH (08:56)
[2021-04-01] MEDS: ALPRAZolam 0.5 MG TAB PO PRN (08:56)
[2021-04-01] MEDS: Cholecalciferol (Vitamin D3) 400 UNITS TAB PO SCH (08:57)
[2021-04-01] MEDS: BARICITINIB 2 MG TAB PO SCH (08:57)
[2021-04-01] MEDS: Dexamethasone 4 mg/ml Vial SLOW IVP SCH (08:57)
[2021-04-01] MEDS: Fluticasone Propionate Nasal Spray 16 gm Bottle NASAL SCH (08:57)
[2021-04-01] MEDS: Loratadine 10 MG TAB PO SCH (08:57)
[2021-04-01] MEDS: Enoxaparin Sodium 40 MG/0.4 ML SYRINGE SC SCH ×2 (08:57→20:42)
[2021-04-01] MEDS: Zinc Sulfate 220 MG CAP PO SCH (08:57)
[2021-04-01] MEDS: Ipratropium Bromide 0.06% Nasal Inhaler 15ml EA NARE SCH ×2 (08:58→20:43)
[2021-04-01] MEDS: Benzonatate 100 MG CAP PO PRN (09:01)
[2021-04-01] MEDS ORDERED: ALPRAZolam 0.25 MG TAB PO PRN (11:33)
[2021-04-01] MEDS ORDERED: ALPRAZolam 0.25 MG TAB PO SCH (15:00)
[2021-04-01] MEDS ORDERED: ALPRAZolam 0.5 MG TAB PO SCH (19:00)
[2021-04-01] MEDS: Melatonin 3 MG TAB PO SCH (20:41)
[2021-04-02] MEDS: guaiFENesin/Codeine 200 mg/20 mg 10 ml Cup PO SCH ×3 (04:33→16:15)
[2021-04-02] MEDS: guaiFENesin ER 600 MG TAB PO SCH ×2 (08:14→20:12)
[2021-04-02] MEDS: Enoxaparin Sodium 40 MG/0.4 ML SYRINGE SC SCH ×2 (08:14→20:12)
[2021-04-02] MEDS: Ascorbic Acid 500 mg Chewable Tablet PO SCH (08:14)
[2021-04-02] MEDS: Dexamethasone 4 mg/ml Vial SLOW IVP SCH (08:15)
[2021-04-02] MEDS: Famotidine 20 MG TAB PO SCH (08:15)
[2021-04-02] MEDS: Zinc Sulfate 220 MG CAP PO SCH (08:15)
[2021-04-02] MEDS: Cholecalciferol (Vitamin D3) 400 UNITS TAB PO SCH (08:15)
[2021-04-02] MEDS: ALPRAZolam 0.5 MG TAB PO SCH ×2 (08:15→20:11)
[2021-04-02] MEDS: Loratadine 10 MG TAB PO SCH (08:15)
[2021-04-02] MEDS: BARICITINIB 2 MG TAB PO SCH (08:15)
[2021-04-02] MEDS: Ipratropium Bromide 0.06% Nasal Inhaler 15ml EA NARE SCH ×2 (08:16→20:15)
[2021-04-02] MEDS: Fluticasone Propionate Nasal Spray 16 gm Bottle NASAL SCH (08:16)
[2021-04-02] MEDS: Benzonatate 100 MG CAP PO PRN ×2 (16:15→20:12)
[2021-04-02] MEDS: Melatonin 3 MG TAB PO SCH (20:11)
[2021-04-02] MEDS: Calcium Carbonate 500 MG ChewTAB PO PRN (20:11)
[2021-04-03] MEDS: guaiFENesin/Codeine 200 mg/20 mg 10 ml Cup PO SCH ×3 (02:02→16:50)
[2021-04-03] MEDS: Cholecalciferol (Vitamin D3) 400 UNITS TAB PO SCH (09:24)
[2021-04-03] MEDS: guaiFENesin ER 600 MG TAB PO SCH (09:24)
[2021-04-03] MEDS: BARICITINIB 2 MG TAB PO SCH (09:24)
[2021-04-03] MEDS: Famotidine 20 MG TAB PO SCH (09:25)
[2021-04-03] MEDS: ALPRAZolam 0.5 MG TAB PO SCH (09:25)
[2021-04-03] MEDS: Zinc Sulfate 220 MG CAP PO SCH (09:25)
[2021-04-03] MEDS: Ascorbic Acid 500 mg Chewable Tablet PO SCH (09:25)
[2021-04-03] MEDS: Enoxaparin Sodium 40 MG/0.4 ML SYRINGE SC SCH (09:26)
[2021-04-03] MEDS: Dexamethasone 4 mg/ml Vial SLOW IVP SCH (09:26)
[2021-04-03] MEDS: Loratadine 10 MG TAB PO SCH (09:26)
[2021-04-03] MEDS: Ipratropium Bromide 0.06% Nasal Inhaler 15ml EA NARE SCH (09:27)
[2021-04-03] MEDS: Fluticasone Propionate Nasal Spray 16 gm Bottle NASAL SCH (09:27)
[2021-04-03 17:28] VITALS: BP 120/79; TEMP 98.2
== END 2021-04-03 17:40 | DRG 871 ==
LOC: ERS 14:38 → T4-A 20:16 → IMCU/EMU 03-20 22:47 → T4-B 03-28 14:10
PROVIDERS: ADMIT Student in an Organized Health Care Education/Training Program; ATTEND Family Medicine
PROC: 8E0ZXY6 Isolation (ICD-10-PCS; 2021-03-17)
PROC: XW033E5 Introduction of Remdesivir Anti-infective into Peripheral Vein, Percutaneous Approach, New Technology Group 5 (ICD-10-PCS; principal; 2021-03-18)
PROC: XW0DXM6 Introduction of Baricitinib into Mouth and Pharynx, External Approach, New Technology Group 6 (ICD-10-PCS; 2021-03-21)
DX: A41.89 Other specified sepsis (principal); U07.1 COVID-19; J12.82 Pneumonia due to coronavirus disease 2019; J96.01 Acute respiratory failure with hypoxia; E87.1 Hypo-osmolality and hyponatremia; R65.20 Severe sepsis without septic shock; J98.2 Interstitial emphysema
CPT/HCPCS: 36415; 36416; 71045; 71275; 80048; 80053; 80076; 82728; 85025; 85379; 86140; 94760; 96374; 96375; J1100; J1650; J1885; J2270; J7050; Q9967

== ENCOUNTER 2021-04-19 22:27 | Emergency (ER) | payer BC ==
[2021-04-19 22:58] LABS: #Basophils 0.1 thou/uL (0.0-0.2); #Eosinphils 0.6 thou/uL (0.0-0.7); #Monocytes 0.9 thou/uL (0.11-0.59); #Neutrophils 6.2 thou/uL (1.40-6.50); %Basophils 0.7 % (0.0-1.0); %Lymphocytes 20.4 % (21.0-51.0); %Monocytes 9.1 % (0.0-10.0); %Neutrophils 63.9 % (42.0-75.0); Hemoglobin 16.3 g/dL (14.0-18.0); Mean Corpuscular HGB CONC 32.9 g/dL (32.0-36.0); Mean Corpuscular Hemoglobin 31.1 pg (27.0-31.0); Mean Corpuscular Volume 94.6 fL (78.0-98.0); Mean Platelet Volume 7.5 fL (7.4-10.4); Platelet Count 249 thou/uL (130-400); Red Blood Cell (RBC) Count 5.25 mill/uL (4.70-6.10); White Blood Cell (WBC) Count 9.7 thou/uL (4.8-10.8)
[2021-04-19] MEDS ORDERED: Cefepime 2 GM VIAL ONE (23:04)
[2021-04-19] MEDS ORDERED: VANCOMYCIN 1.75 GM/350 ML BAG 1.75 GM in Premix Bag 1 BAG IVPB SCH (23:15)
[2021-04-19 23:19] LABS: ALT (SGPT) 59 U/L (8-55); AST (SGOT) 23 U/L (5-34); Albumin 3.7 g/dL (3.5-5.0); Alkaline Phosphatase 85 U/L (40-110); Anion Gap 13 mmol/L (10-20); BUN (Urea Nitrogen) 8 mg/dL (8.9-20.6); Bilirubin, Total 0.6 mg/dL (0.2-1.2); Calc. Creatinine Clearance 0 mL/min (70-130); Calcium 9.4 mg/dL (7.8-10.44); Carbon Dioxide 24 mmol/L (22-29); Chloride 103 mmol/L (98-107); Glucose 137 mg/dL (70-105); Potassium 3.9 mmol/L (3.5-5.1); Protein, Total 7.7 g/dL (6.0-8.3); Sodium 136 mmol/L (136-145)
[2021-04-19 23:24] LABS: INR-International Normal Ratio 1.1; PTT 40.9 sec (22.9-36.1); Prothrombin Time 14.6 sec (12.0-14.7)
[2021-04-20 01:04] LABS: Bilirubin Negative (Negative); Blood, Urine Negative (Negative); Clarity Clear (Clear); Glucose, Urine (Dipstick) Normal (Negative); Ketone, Urine Negative (Negative); Leukocyte Negative Leu/uL (Negative); Nitrite Negative (Negative); Protein, Urine (Dipstick) 10 mg/dL (Neg-Trace); Specific Gravity, Urine 1.032 (1.002-1.036); Urobilinogen Normal mg/dL (Less than 2)
== END 2021-04-20 03:35 | disposition home or self-care (01) ==
LOC: ERS 22:27
DX: J18.9 Pneumonia, unspecified organism (principal); Z79.82 Long term (current) use of aspirin; Z79.01 Long term (current) use of anticoagulants; Z79.899 Other long term (current) drug therapy
CPT/HCPCS: 36415; 71045; 71275; 80053; 81003; 83605; 83880; 85025; 85610; 85730; 87040; 87086; 93005; 96365; 96366; 96375; J0692; J3370; J3490; J7070; Q9967